=== PATIENT | female | born 1980 | race Hispanic/Latino ===

== ENCOUNTER 2017-09-11 17:25 | Emergency (ER) | payer MEDICAID ==
[~2017-09-11 17:25] MED LIST: ONDA4TAB7 PO
== END 2017-09-11 18:26 | disposition home or self-care (01) ==
LOC: EDH 17:25
DX: S62.601A Fracture of unspecified phalanx of left index finger, initial encounter for closed fracture (principal); S62.603A Fracture of unspecified phalanx of left middle finger, initial encounter for closed fracture; E11.9 Type 2 diabetes mellitus without complications; I10 Essential (primary) hypertension; Z79.4 Long term (current) use of insulin; W23.0XXA Caught, crushed, jammed, or pinched between moving objects, initial encounter; Y93.89 Activity, other specified; Y92.098 Other place in other non-institutional residence as the place of occurrence of the external cause; Y99.8 Other external cause status
CPT/HCPCS: 73130